=== PATIENT | female | born 1995 | race Hispanic/Latino ===

== ENCOUNTER → 2019-03-04 | Outpatient (CLI) | payer OTHER ==
--- NOTE | 2019-03-05 11:07 | REP ---
Clinical: Abnormal menstrual cycles. Technique: Transabdominal pelvic ultrasound followed by transvaginal examination for better evaluation of the endometrium and adnexa with color Doppler evaluation of the ovaries. Findings: Normal anteverted uterus measures 7.3 x 3.2 x 4.7 cm. Endometrial complex measures 5.3 mm thickness. Large Nabothian cysts in the cervical region measure 14 and 10 mm each. No further uterine or endometrial abnormalities are appreciated. Ovaries are relatively normal in appearance and vascularity without torsion. Right ovary measures 3.2 x 2.0 x 1.9 cm; RI 0.60. Left ovary measures 4.4 x 2.6 x 3.2 cm with 2.6 cm physiologic cyst; RI 0.51. No pelvic fluid or adnexal mass lesion. Impression: 1. Prominent Nabothian cysts measuring up to 14 mm. 2. Essentially normal bilateral ovaries. A 2.6 cm presumed physiologic cyst in the left ovary noted. Electronically Signed by Donnie Ndiaye MD 03/05/2019 10:59 A
== END ==
LOC: M RAD 11:28
PROVIDERS: ATTEND Physician Assistant Medical
DX: N83.202 Unspecified ovarian cyst, left side (principal); N88.8 Other specified noninflammatory disorders of cervix uteri